=== PATIENT | male | born 1970 | race African-American/Black ===

== ENCOUNTER 2017-10-17 22:59 | Emergency (ER) ==
[2017-10-17 23:11] VITALS: BP 140/93
== END 2017-10-18 01:05 | disposition left against medical advice (07) ==
LOC: ER 22:59
DX: Z53.21 Procedure and treatment not carried out due to patient leaving prior to being seen by health care provider (principal)

== ENCOUNTER 2017-10-21 22:16 | Emergency (ER) | payer MEDICAID ==
[2017-10-22] MEDS ORDERED: KETOROLAC TROMETHAMINE 60 MG/2 ML SDV IM ONE (00:09)
[2017-10-22] MEDS ORDERED: CYCLOBENZAPRINE HCL 10 MG TABLET PO ONE (00:09)
[2017-10-22] MEDS ORDERED: LIDOCAINE 5% (700 MG) TRANSDERMAL ADH..PATCH TP ONE (00:09)
[2017-10-22] MEDS ORDERED: ACETAMINOPHEN 325 MG TABLET PO ONE (00:09)
--- NOTE | 2017-10-22 00:11 | ER Document Report ---
ED General - General Chief Complaint: Fall Stated Complaint: FALL/BACK PAIN Time Seen by Provider: 10/21/17 23:23 Notes: Patient is a 47-year-old male without chronic medical problems who presents with 3 days of low back pain as well as neck pain. Patient states that he was carrying a box down stairs 3 days ago and when he fell. He states that since that time he has had a dull, constant, throbbing, spasming pain to his bilateral low back as well as bilateral neck. He has not tried anything to improve the pain. He denies history of similar injury in the past or chronic back problems. He has not seen his primary doctor regarding today's concerns. He denies any bowel or bladder incontinence retention, weakness, numbness, inability to ambulate, or progressive worsening of the pain. He has not seen his primary doctor regarding today's concerns. Nothing is new or different about her symptoms that prompted her emergency department visit tonight other than that they are failing to improve. TRAVEL OUTSIDE OF THE [place] IN LAST 30 DAYS: No - Related Data Allergies/Adverse Reactions: Penicillins Allergy (Verified 10/22/17 00:43) Past Medical History - General Information source: Patient - Social History Smoking Status: Never Smoker Frequency of alcohol use: None Drug Abuse: None Lives with: Spouse/Significant other Family History: Reviewed & Not Pertinent Patient has suicidal ideation: No Patient has homicidal ideation: No Renal/ Medical History: Denies: Hx Peritoneal Dialysis Review of Systems - Review of Systems Notes: Constitutional: Negative for fever. HENT: Negative for sore throat. Eyes: Negative for visual changes. Cardiovascular: Negative for chest pain. Respiratory: Negative for shortness of breath. Gastrointestinal: Negative for abdominal pain, vomiting or diarrhea. Genitourinary: Negative for dysuria. Musculoskeletal: Positive for low back pain Skin: Negative for rash. Neurological: Negative for headaches, weakness or numbness. 10 point ROS negative except as marked above and in HPI. Physical Exam - Vital signs Vitals: Temp Pulse BP Pulse Ox 98.5 F 87 122/87 H 100 10/21/17 22:38 10/21/17 22:38 10/21/17 22:38 10/21/17 22:38 Interpretation: Normal Notes: PHYSICAL EXAMINATION: GENERAL: Appears uncomfortable but in no acute distress HEAD: Atraumatic, normocephalic. EYES: Pupils equal round and reactive to light, extraocular movements intact, sclera anicteric, conjunctiva are normal. ENT: nares patent, oropharynx clear without exudates. Moist mucous membranes. NECK: Normal range of motion, supple without lymphadenopathy LUNGS: Breath sounds clear to auscultation bilaterally and equal. No wheezes rales or rhonchi. HEART: Regular rate and rhythm without murmurs ABDOMEN: Soft, nontender, normoactive bowel sounds. No guarding, no rebound. No masses appreciated. EXTREMITIES: Normal range of motion, no pitting or edema. No cyanosis. Back: No midline spinal tenderness, step-offs or deformities NEUROLOGICAL: 5 out of 5 strength both distally and proximally bilateral lower extremities. 2+ patellar reflexes bilaterally. No clonus. Sensation grossly intact in the bilateral lower extremities. Patient is able to ambulate without difficulty. PSYCH: Mildly anxious SKIN: Warm, Dry, normal turgor, no rashes or lesions noted. Course - Re-evaluation Re-evalutation: 10/22/17 00:09 Presentation of a well appearing patient complaining of acute back pain after a fall 4 days ago. No rapid progression of symptoms, systemic symptoms including fevers, chills, weight loss, history of recent bacterial infection, bilateral symptoms, numbness, weakness, difficulty walking, urinary retention or bowel incontinence, personal history of cancer, immunosuppression, diabetes, known AAA , or history of IV drug use. Exam is without point tenderness over vertebral bodies, pulsatile abdominal mass, and patient has symmetric and intact lower extremity strength, sensation, and reflexes without clonus. 2+ symmetric medial malleolar and dorsalis pedis pulses Based on history and physical, I have a very low suspicion of a concerning etiology of pain including epidural compression syndrome, spinal infection, transverse myelitis, malignancy, abdominal aortic aneurysm, renal colic, acute lower extremity claudication, neurogenic claudication, ankylosing spondylitis, or other intra-abdominal process. Due to absence of concerning risk factors in history and physical as well as absence of rapidly progressive, severe, or bilateral symptoms, will defer imaging at this point. Plan to manage conservatively with outpatient analgesia, analgesia, and physical therapy. - Acetaminophen 650 q 4 + ibuprofen 600 q 6 - Continue normal daily activities as tolerated by pain - Provide with standard musculoskeletal back pain exercise instructions - Instruct to follow up with primary care provider if symptoms not improving - Provide careful return precautions and concerning symptoms to watch for. 10/22/17 03:14 - Vital Signs Vital signs: Temp Pulse Resp BP Pulse Ox 98.5 F 64 18 122/86 H 100 10/22/17 00:37 10/22/17 00:37 10/22/17 00:37 10/22/17 00:37 10/22/17 00:37 Discharge - Discharge Clinical Impression: Neck pain Low back pain Qualifiers: Chronicity: acute Back pain laterality: bilateral Sciatica presence: without sciatica Qualified Code(s): M54.5 - Low back pain Fall Qualifiers: Encounter type: initial encounter Qualified Code(s): W19.XXXA - Unspecified fall, initial encounter Condition: Good Disposition: HOME, SELF-CARE Additional Instructions: You have been seen in the Emergency Department (ED) today for back pain. Your workup and exam have not shown any acute abnormalities and you are likely suffering from muscle strain or possible problems with your discs, but there is no treatment that will fix your symptoms at this time. Please take the naproxen that has been prescribed as directed. He may additionally take Tylenol 1000 mg every 6 hours as needed for breakthrough pain. You should also purchase a local lidocaine cream such as "aspercreme with lidocaine" and use per bottle instructions to the affected area. Apply heat to the area as often as you are able. Continue to keep active and avoid prolonged periods of bed rest. You have been prescribed Flexeril which you can take at night to help relax your muscles and get some sleep. Please follow up with your doctor as soon as possible regarding today's ED visit and your back pain. Return to the ED for worsening back pain, fever, weakness or numbness of either leg, or if you develop either (1) an inability to urinate or have bowel movements, or (2) loss of your ability to control your bathroom functions (if you start having "accidents"), or if you develop other new symptoms that concern you.concern you. Prescriptions: Cyclobenzaprine HCl [Flexeril 10 mg Tablet] 10 mg PO QHS PRN #15 tablet PRN Reason: Naproxen 500 mg PO BID #60 tablet
[2017-10-22 00:44] VITALS: BP 122/86
== END 2017-10-22 00:44 | disposition home or self-care (01) ==
LOC: ER 22:16
DX: M54.5 Low back pain (principal); M54.2 Cervicalgia; W10.9XXA Fall (on) (from) unspecified stairs and steps, initial encounter; Z88.0 Allergy status to penicillin
CPT/HCPCS: 99283; 96372; J1885

== ENCOUNTER 2018-06-24 14:20 | Emergency (ER) | payer OTHER ==
[2018-06-24] MEDS ORDERED: KETOROLAC TROMETHAMINE 60 MG/2 ML SDV IM ONE (15:29)
[2018-06-24] MEDS ORDERED: METHOCARBAMOL 750 MG TABLET PO ONE (15:29)
--- NOTE | 2018-06-24 15:29 | ER Document Report ---
ED General - General Chief Complaint: Cough Stated Complaint: FALL/BACK PAIN Time Seen by Provider: 06/24/18 15:17 Notes: Patient is a 48-year-old male that presents to the emergency department for chief complaint of back pain after fall. Patient states that he fell from about 4 feet up onto his lower back, around 12:30 PM today, he complains of pain in the middle of his low back, worse with ranges of motion, he gets some radiation down to the buttock on the right side. He denies having any numbness, tingling or weakness, has been able to ambulate without too much difficulty. Denies any saddle anesthesia or paresthesias. Denies any urinary or bowel incontinence or urinary retention. He currently rates his pain as a 6 out of 10, describes as a constant aching sensation worse with movements. Secondarily he also complains of cough that is had for about a week, with some productive sputum. Denies any any fevers, chills, night sweats. Past Medical History: Denies chronic medical conditions Past Surgical History: Exploratory laparotomy Social History: Denies tobacco, alcohol or drug use. Family History: Reviewed and noncontributory for presenting illness Allergies: Reviewed, see documented allergy list. REVIEW OF SYSTEMS: Other than noted above, the 12 point review of systems was reviewed with the patient and were negative, all pertinent findings are included in the HPI. PHYSICAL EXAMINATION: Vital signs reviewed, nursing noted reviewed. GENERAL: Well-appearing, well-nourished and in no acute distress. HEAD: Atraumatic, normocephalic. EYES: Eyes appear normal, extraocular movements intact, sclera anicteric, conjunctiva are normal. ENT: nares patent, oropharynx clear without exudates. Moist mucous membranes. NECK: Normal range of motion, supple without lymphadenopathy LUNGS: Breath sounds clear to auscultation bilaterally and equal. No wheezes rales or rhonchi. HEART: Regular rate and rhythm without murmurs ABDOMEN: Soft, nontender, normoactive bowel sounds. No rebound, guarding, or rigidity. No masses appreciated. Well-healed laparotomy scar present Back: Mild tenderness to palpation to the paraspinal muscles of the lumbar spine bilaterally, no significant midline tenderness in the thoracic or lumbar spine. He has good range of motion with extension, flexion side bending and rotation, but does have discomfort with this. EXTREMITIES: Nontender, good range of motion, no pitting or edema. NEUROLOGICAL: No focal neurological deficits. Moves all extremities spontaneously Motor and sensory grossly intact on exam. PSYCH: Normal mood, normal affect. SKIN: Warm, Dry, normal turgor, no rashes or lesions noted on exposed skin TRAVEL OUTSIDE OF THE [place] IN LAST 30 DAYS: No - Related Data Allergies/Adverse Reactions: Penicillins Allergy (Verified 10/22/17 00:43) Past Medical History - Social History Smoking Status: Current Every Day Smoker Chew tobacco use (# tins/day): No Frequency of alcohol use: None Drug Abuse: Marijuana Family History: Reviewed & Not Pertinent Patient has suicidal ideation: No Patient has homicidal ideation: No Renal/ Medical History: Denies: Hx Peritoneal Dialysis Physical Exam - Vital signs Vitals: Temp Pulse Resp BP Pulse Ox 98.5 F 82 18 140/85 H 98 06/24/18 14:37 06/24/18 14:37 06/24/18 14:37 06/24/18 14:37 06/24/18 14:37 Course - Re-evaluation Re-evalutation: Patient seen and examined vital signs reviewed. Imaging ordered as appropriate for the patient's presenting symptoms and complaint, with consideration of any critical or life threatening conditions that may be associated with their obtained history and exam as noted above. Patient was treated with Robaxin, and IM Toradol Results were reviewed when available and demonstrated negative imaging of the l umbar spine, for acute bony injury The patient was re-evaluated and was stable and improved Evaluation was most consistent with lumbar contusion, low back pain, will discharge patient home with prescription for anti-inflammatory, and muscle relaxer, advised heating pad as well. He is also prescribed Tessalon Perles for his cough/URI symptoms. Results were discussed with the patient at this point, after careful consideration I feel that that patient can be discharged from the emergency department, the patient was educated treatments and reasons to return to the emergency department based on their presumed diagnosis as noted above, they were advised to followup with a primary care physician in 2-3 days. Patient was agreeable to plan of care. *Note is created using voice recognition software and may contain spelling, syntax or grammatical errors. Lumbar Spine X-Ray 06/24/18 15:28 IMPRESSION: No acute osseous finding.L5-S1 level mild-moderate disc space narrowing with osteophytes.Radiodense material in the left T12 paravertebral soft tissues, chronic appearing. - Vital Signs Vital signs: Temp Pulse Resp BP Pulse Ox 98.5 F 82 18 140/85 H 98 06/24/18 14:37 06/24/18 14:37 06/24/18 14:37 06/24/18 14:37 06/24/18 14:37 Discharge - Discharge Clinical Impression: Low back pain Qualifiers: Chronicity: acute Back pain laterality: bilateral Sciatica presence: without sciatica Qualified Code(s): M54.5 - Low back pain URI (upper respiratory infection) Qualifiers: URI type: unspecified URI Qualified Code(s): J06.9 - Acute upper respiratory infection, unspecified Condition: Stable Disposition: HOME, SELF-CARE Instructions: Low Back Pain ([facility]), Upper Respiratory Illness ([facility]) Additional Instructions: Please take the medications as prescribed, if you develop difficulty urinating, or loss of control of your bowels, or have any numbness, tingling or weakness in your legs, do not hesitate to return to the emergency department. Prescriptions: Benzonatate [Tessalon Perle 100 mg Capsule] 100 mg PO Q8HP PRN #30 cap PRN Reason: Cough Methocarbamol [Robaxin 750 mg Tablet] 750 mg PO Q6H PRN #30 tablet PRN Reason: back pain Naproxen [Naprosyn] 500 mg PO BID PRN #30 tablet PRN Reason: back pain Referrals: KIRA ANNE MD [COMMUNITY BASED STAFF] - Follow up in 3-5 days (or your primary care. )
--- NOTE | 2018-06-24 16:44 | RADIOLOGY REPORT (SQ) ---
EXAM DESCRIPTION: L SPINE WHOLE COMPLETED DATE/TIME: 06/24/2018 3:59 pm REASON FOR STUDY: BACK PAIN, INJURY COMPARISON: None. NUMBER OF VIEWS: Five views including obliques. TECHNIQUE: AP, lateral, oblique, and sacral radiographic images acquired of the lumbar spine. LIMITATIONS: None. FINDINGS: MINERALIZATION: Normal. SEGMENTATION: Normal. No transitional anatomy. ALIGNMENT: Normal. VERTEBRAE: Maintained height. No fracture or worrisome bone lesion. DISCS: L5-S1 level mild-moderate disc space narrowing with osteophytes. POSTERIOR ELEMENTS: Pedicles and facets are intact. No pars defect or posterior arch defects. Facet arthropathy is present. HARDWARE: None in the spine. PARASPINAL SOFT TISSUES: Radiodense material in the left T12 paravertebral soft tissues, chronic appe aring. PELVIS: Intact as visualized. No fractures or worrisome bone lesions. SI joints intact. OTHER: No other significant finding. IMPRESSION: No acute osseous finding.L5-S1 level mild-moderate disc space narrowing with osteophytes .Radiodense material in the left T12 paravertebral soft tissues, chronic appearing. TECHNICAL DOCUMENTATION: JOB ID: [id number] [id number] 2010 [employer]- All Rights Reserved Reading location - IP/workstation name: [employer]
[2018-06-24 17:30] VITALS: BP 145/90
== END 2018-06-24 17:28 | disposition home or self-care (01) ==
LOC: ER 14:20
DX: M54.5 Low back pain (principal); W17.89XA Other fall from one level to another, initial encounter; M25.78 Osteophyte, vertebrae; F17.200 Nicotine dependence, unspecified, uncomplicated; F12.10 Cannabis abuse, uncomplicated; Z88.0 Allergy status to penicillin; J06.9 Acute upper respiratory infection, unspecified
CPT/HCPCS: 99283; 96372; 72110; J1885; J3490

== ENCOUNTER 2018-07-03 08:39 | Emergency (ER) | payer BC, OTHER ==
[2018-07-03 08:45] VITALS: BP 143/92
[2018-07-03] MEDS ORDERED: HYDROCODONE/ACETAMINOPHEN 5-325 MG TABLET PO ONE (09:13)
[2018-07-03] MEDS ORDERED: IBUPROFEN 800 MG TABLET PO ONE (09:13)
[2018-07-03] MEDS ORDERED: LIDOCAINE 5% (700 MG) TRANSDERMAL ADH..PATCH TP ONE (09:13)
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
== END 2018-07-03 09:31 | disposition home or self-care (01) ==
LOC: ER 08:39
DX: M70.811 Other soft tissue disorders related to use, overuse and pressure, right shoulder (principal); M54.9 Dorsalgia, unspecified; F17.200 Nicotine dependence, unspecified, uncomplicated
CPT/HCPCS: 99283

== ENCOUNTER 2018-07-21 05:19 | Emergency (ER) | payer OTHER, BC ==
[2018-07-21] MEDS ORDERED: NORMAL SALINE 1000 ML 1,000 ML IV ONE (06:38)
[2018-07-21 07:09] LABS: ABSOLUTE EOSINOPHILS # (AUTO) 0.1 10^3/uL (0.0-0.6); ABSOLUTE LYMPHOCYTES (AUTO) 1.8 10^3/uL (0.5-4.7); ABSOLUTE MONOCYTES (AUTO) 0.5 10^3/uL (0.1-1.4); ABSOLUTE NEUT (AUTO) 2.4 10^3/uL (1.7-8.2); BASOPHILS % (AUTO) 0.6 % (0-2); EOSINOPHILS % (AUTO) 1.3 % (0-6); HEMATOCRIT 45.5 % (37.9-51.0); HEMOGLOBIN 15.5 g/dL (13.5-17.0); LYMPHOCYTES % (AUTO) 38.5 % (13-45); MEAN CORPUSCULAR HGB CONC 34.2 g/dL (32.0-36.0); MEAN CORPUSCULAR VOLUME 91 fl (80-97); MONOCYTES % (AUTO) 9.7 % (3-13); PLATELET COUNT 244 10^3/uL (150-450); RED BLOOD COUNT 5.01 10^6/uL (4.35-5.55); RED CELL DISTRIBUTION WIDTH 12.9 % (11.5-14.0); SEGMENTED NEUTROPHILS % (AUTO) 49.9 % (42-78); TOTAL CELLS COUNTED % (AUTO) 100 %; WHITE BLOOD COUNT 4.8 10^3/uL (4.0-10.5)
[2018-07-21 07:20] LABS: ANION GAP 8 (5-19); BLOOD UREA NITROGEN 10 mg/dL (7-20); CALCIUM 9.4 mg/dL (8.4-10.2); CARBON DIOXIDE 28 mmol/L (22-30); CHLORIDE 105 mmol/L (98-107); GLUCOSE 96 mg/dL (75-110); POTASSIUM 3.9 mmol/L (3.6-5.0); SODIUM 140.6 mmol/L (137-145)
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
[2018-07-21] MEDS ORDERED: KETOROLAC TROMETHAMINE INJ/PF 30 MG/1 ML SDV IV ONE (09:18)
[2018-07-21 10:01] VITALS: BP 150/103
--- NOTE | 2018-07-21 21:20 | EKG REPORT ---
SEVERITY:- OTHERWISE NORMAL ECG - SINUS BRADYCARDIA BORDERLINE LEFT AXIS DEVIATION : Confirmed by: Anuja Peralta MD 21-Jul-2018 21:19:43
== END 2018-07-21 10:01 | disposition home or self-care (01) ==
LOC: ER 05:19
DX: S20.412A Abrasion of left back wall of thorax, initial encounter (principal); M25.50 Pain in unspecified joint; R51 Headache; M54.2 Cervicalgia; R07.9 Chest pain, unspecified; R10.12 Left upper quadrant pain; V43.52XA Car driver injured in collision with other type car in traffic accident, initial encounter; Y93.89 Activity, other specified; N40.0 Benign prostatic hyperplasia without lower urinary tract symptoms; M89.9 Disorder of bone, unspecified
CPT/HCPCS: 93005; 99284; 96361; 96374; 36415; 85025; 80048; 70450; 71260; 72125; 74177; 93010; L0120; J1885; J7030

== ENCOUNTER 2018-08-10 04:05 | Emergency (ER) | payer BC, OTHER ==
[2018-08-10] MEDS ORDERED: LIDOCAINE 5% (700 MG) TRANSDERMAL ADH..PATCH TP ONE (05:03)
[2018-08-10] MEDS ORDERED: KETOROLAC TROMETHAMINE 60 MG/2 ML SDV IM ONE (05:03)
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
--- NOTE | 2018-08-10 05:29 | RADIOLOGY REPORT (SQ) ---
EXAM DESCRIPTION: XR SHOULDER 2 OR MORE VIEWS COMPLETED DATE/TME: 08/10/2018 05:02 CLINICAL HISTORY: 48 years, Male, pain COMPARISON: None. FINDINGS: 3 views of the left shoulder. No acute fracture or dislocation. Normal osseous mineralization. Degenerative change of the acromioclavicular joint. No acute abnormalities of the left hemithorax the IMPRESSION: 1. No acute fracture or dislocation. copyright 2010 [employer]- All Rights Reserved
[2018-08-10 05:56] VITALS: BP 138/90
== END 2018-08-10 05:56 | disposition home or self-care (01) ==
LOC: ER 04:05
DX: M25.512 Pain in left shoulder (principal); R20.0 Anesthesia of skin; X50.3XXA Overexertion from repetitive movements, initial encounter; Y99.0 Civilian activity done for income or pay; I10 Essential (primary) hypertension; F17.200 Nicotine dependence, unspecified, uncomplicated
CPT/HCPCS: 99283; 96372; 73030; J1885

== ENCOUNTER 2018-09-10 00:15 | Emergency (ER) | payer BC ==
[2018-09-10] MEDS ORDERED: KETOROLAC TROMETHAMINE INJ/PF 30 MG/1 ML SDV IM ONE (01:45)
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
[2018-09-10 03:01] VITALS: BP 121/84
--- NOTE | 2018-09-10 03:16 | RADIOLOGY REPORT (SQ) ---
EXAM DESCRIPTION: XR SHOULDER 2 OR MORE VIEWS COMPLETED DATE/TME: 09/10/2018 01:45 CLINICAL HISTORY: 48 years Male, pain COMPARISON:Aug 10 2018 Findings: Mild osteoarthritis of the left acromioclavicular joint. Bones, joints, and soft tissues of the LEFT XR SHOULDER 2 OR MORE VIEWS appear otherwise unremarkable. IMPRESSION: No acute findings.
--- NOTE | 2018-09-10 03:16 | RADIOLOGY REPORT (SQ) ---
Right wrist three view on 09/10/2018 at 2:11 AM CLINICAL INDICATION: Right wrist pain COMPARISON: None FINDINGS: There are no fractures. Visualized joints are well aligned. No bony abnormality is noted. IMPRESSION: No acute bony abnormality.
[2018-09-10] MEDS ORDERED: PREDNISONE 20 MG TABLET PO ONE (03:23)
== END 2018-09-10 03:37 | disposition home or self-care (01) ==
LOC: ER 00:15
DX: M77.9 Enthesopathy, unspecified (principal); M25.512 Pain in left shoulder; G89.29 Other chronic pain; M25.531 Pain in right wrist; X50.3XXA Overexertion from repetitive movements, initial encounter; F17.200 Nicotine dependence, unspecified, uncomplicated
CPT/HCPCS: 99283; 96372; 73030; 73110; L3908; J1885; J7512

== ENCOUNTER 2018-11-25 01:06 | Emergency (ER) | payer BC, OTHER ==
[2018-11-25 01:23] VITALS: BP 125/84
[2018-11-25] MEDS ORDERED: IBUPROFEN 600 MG TABLET PO ONE (01:36)
[2018-11-25] MEDS ORDERED: ACETAMINOPHEN 325 MG TABLET PO ONE (01:36)
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
== END 2018-11-25 03:10 | disposition left against medical advice (07) ==
LOC: ER 01:06
DX: R51 Headache (principal); Z88.0 Allergy status to penicillin
CPT/HCPCS: 99281

== ENCOUNTER 2018-12-13 03:41 | Emergency (ER) | payer SELFPAY ==
[2018-12-13] MEDS ORDERED: METOCLOPRAMIDE HCL INJ/PF 10 MG/2 ML SDV IV ONE (07:22)
[2018-12-13] MEDS ORDERED: NORMAL SALINE 1000 ML 1,000 ML IV ONE (07:22)
[2018-12-13] MEDS ORDERED: DIPHENHYDRAMINE HCL 50 MG/ML VIAL IV ONE (07:22)
[2018-12-13] MEDS ORDERED: DEXAMETHASONE 4 MG TABLET PO ONE (07:22)
[2018-12-13 07:57] LABS: ABSOLUTE BASOPHILS # (AUTO) 0.1 10^3/uL (0.0-0.2); ABSOLUTE EOSINOPHILS # (AUTO) 0.1 10^3/uL (0.0-0.6); ABSOLUTE LYMPHOCYTES (AUTO) 2.3 10^3/uL (0.5-4.7); ABSOLUTE MONOCYTES (AUTO) 0.6 10^3/uL (0.1-1.4); ABSOLUTE NEUT (AUTO) 3.3 10^3/uL (1.7-8.2); BASOPHILS % (AUTO) 0.8 % (0-2); EOSINOPHILS % (AUTO) 2.2 % (0-6); HEMOGLOBIN 15.8 g/dL (13.5-17.0); MEAN CORPUSCULAR HGB CONC 33.7 g/dL (32.0-36.0); MEAN CORPUSCULAR VOLUME 92 fl (80-97); MONOCYTES % (AUTO) 9.9 % (3-13); PLATELET COUNT 297 10^3/uL (150-450); RED BLOOD COUNT 5.11 10^6/uL (4.35-5.55); RED CELL DISTRIBUTION WIDTH 13.8 % (11.5-14.0); SEGMENTED NEUTROPHILS % (AUTO) 51.1 % (42-78); TOTAL CELLS COUNTED % (AUTO) 100 %; WHITE BLOOD COUNT 6.5 10^3/uL (4.0-10.5)
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
[2018-12-13 08:21] LABS: BLOOD UREA NITROGEN 10 mg/dL (7-20); CALCIUM 9.6 mg/dL (8.4-10.2); GLUCOSE 84 mg/dL (75-110); POTASSIUM 4.7 mmol/L (3.6-5.0)
--- NOTE | 2018-12-13 08:25 | RADIOLOGY REPORT (SQ) ---
EXAM DESCRIPTION: CT HEAD WITHOUT COMPLETED DATE/TIME: 12/13/2018 7:37 am REASON FOR STUDY: headache COMPARISON: CT brain 07/21/2018 TECHNIQUE: Axial images acquired through the brain without intravenous contrast. Images reviewed wi th bone, brain and subdural windows. Additional sagittal and coronal reconstructions were generated. Images stored on PACS. All CT scanners at this facility use dose modulation, iterative reconstruction, and/or weight based d osing when appropriate to reduce radiation dose to as low as reasonably achievable (ALARA). [facility]: Dose Right [facility]: CareDose [facility]: Dose Right [facility]: Teradose 4D [facility]: Smart Signicat RADIATION DOSE: CT Rad equipment meets quality standard of care and radiation dose reduction techniq ues were employed. CTDIvol: 53.2 mGy. DLP: 1070 mGy-cm. mGy. LIMITATIONS: None. FINDINGS: VENTRICLES: Normal size and contour. CEREBRUM: No masses. No hemorrhage. No midline shift. No evidence for acute infarction. Normal gra y/white matter differentiation. No areas of low density in the white matter. CEREBELLUM: No masses. No hemorrhage. No alteration of density. No evidence for acute infarction. EXTRAAXIAL SPACES: No fluid collections. No masses. ORBITS AND GLOBE: No intra- or extraconal masses. Normal contour of globe without masses. CALVARIUM: No fracture. PARANASAL SINUSES: No fluid or mucosal thickening. SOFT TISSUES: No mass or hematoma. OTHER: No other significant finding. IMPRESSION: NORMAL BRAIN CT WITHOUT CONTRAST. EVIDENCE OF ACUTE STROKE: NO. COMMENT: Quality ID # [id number]: Final reports with documentation of one or more dose reduction techniques (e.g., Automated exposure control, adjustment of the mA and/or kV according to patient size, use of iterative reconstruction technique) TECHNICAL DOCUMENTATION: JOB ID: [id number] [employer]- All Rights Reserved Reading location - IP/workstation name: [email or web address]
[2018-12-13 08:27] LABS: CARBON DIOXIDE 30 mmol/L (22-30); CHLORIDE 104 mmol/L (98-107); SODIUM 140.1 mmol/L (137-145)
[2018-12-13 08:28] LABS: ANION GAP 6 (5-19)
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
[2018-12-13 09:34] LABS: APPEARANCE,URINE CLEAR; BILIRUBIN,URINE NEGATIVE (NEGATIVE); COLOR,URINE YELLOW; GLUCOSE, URINE NEGATIVE (NEGATIVE); KETONES,URINE NEGATIVE (NEGATIVE); LEUKOCYTE ESTERASE,URINE NEGATIVE (NEGATIVE); NITRITE,URINE NEGATIVE (NEGATIVE); PROTEIN,URINE NEGATIVE (NEGATIVE); URINE SPECIFIC GRAVITY 1.011; UROBILINOGEN,URINE NEGATIVE mg/dL (<2.0)
[2018-12-13 09:53] VITALS: BP 136/95
--- NOTE | 2018-12-13 10:32 | EKG REPORT ---
SEVERITY:- OTHERWISE NORMAL ECG - SINUS RHYTHM LEFT AXIS DEVIATION : Confirmed by: Anuja Peralta MD 13-Dec-2018 10:31:41
== END 2018-12-13 09:54 | disposition home or self-care (01) ==
LOC: ER 03:41
DX: R51 Headache (principal); M54.5 Low back pain; I10 Essential (primary) hypertension; R20.0 Anesthesia of skin; Z91.14 Patient's other noncompliance with medication regimen; Z88.0 Allergy status to penicillin
CPT/HCPCS: 93005; 99284; 96361; 96374; 96375; 36415; 85025; 80048; 81001; 72110; 70450; 93010; J1200; J2765; J7030

== ENCOUNTER 2019-01-31 20:05 | Emergency (ER) | payer SELFPAY ==
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
[2019-01-31 21:06] LABS: ABSOLUTE BASOPHILS # (AUTO) 0.1 10^3/uL (0.0-0.2); ABSOLUTE EOSINOPHILS # (AUTO) 0.1 10^3/uL (0.0-0.6); ABSOLUTE LYMPHOCYTES (AUTO) 2.5 10^3/uL (0.5-4.7); ABSOLUTE MONOCYTES (AUTO) 0.6 10^3/uL (0.1-1.4); ABSOLUTE NEUT (AUTO) 2.6 10^3/uL (1.7-8.2); BASOPHILS % (AUTO) 0.9 % (0-2); EOSINOPHILS % (AUTO) 2.1 % (0-6); HEMATOCRIT 43.2 % (37.9-51.0); HEMOGLOBIN 14.6 g/dL (13.5-17.0); LYMPHOCYTES % (AUTO) 42.6 % (13-45); MEAN CORPUSCULAR HEMOGLOBIN 30.9 pg (27.0-33.4); MEAN CORPUSCULAR HGB CONC 33.8 g/dL (32.0-36.0); MEAN CORPUSCULAR VOLUME 92 fl (80-97); MONOCYTES % (AUTO) 10.2 % (3-13); PLATELET COUNT 242 10^3/uL (150-450); RED BLOOD COUNT 4.72 10^6/uL (4.35-5.55); RED CELL DISTRIBUTION WIDTH 13.2 % (11.5-14.0); SEGMENTED NEUTROPHILS % (AUTO) 44.2 % (42-78); TOTAL CELLS COUNTED % (AUTO) 100 %; WHITE BLOOD COUNT 5.9 10^3/uL (4.0-10.5)
[2019-01-31 21:17] LABS: APPEARANCE,URINE CLEAR; BILIRUBIN,URINE NEGATIVE (NEGATIVE); COLOR,URINE YELLOW; GLUCOSE, URINE NEGATIVE (NEGATIVE); KETONES,URINE NEGATIVE (NEGATIVE); LEUKOCYTE ESTERASE,URINE NEGATIVE (NEGATIVE); NITRITE,URINE NEGATIVE (NEGATIVE); PROTEIN,URINE NEGATIVE (NEGATIVE); URINE SPECIFIC GRAVITY 1.017; UROBILINOGEN,URINE NEGATIVE mg/dL (<2.0)
[2019-01-31 21:27] LABS: ALKALINE PHOSPHATASE 67 U/L (38-126); ANION GAP 6 (5-19); ASPARTATE AMINO TRANSFERASE 23 U/L (17-59); BILIRUBIN,DIRECT 0.2 mg/dL (0.0-0.4); BILIRUBIN,TOTAL 0.6 mg/dL (0.2-1.3); BLOOD UREA NITROGEN 14 mg/dL (7-20); CALCIUM 9.5 mg/dL (8.4-10.2); CARBON DIOXIDE 31 mmol/L (22-30); CHLORIDE 99 mmol/L (98-107); GLUCOSE 98 mg/dL (75-110); POTASSIUM 4.1 mmol/L (3.6-5.0); TOTAL PROTEIN 7.1 g/dL (6.3-8.2)
[2019-01-31 21:32] LABS: URINE AMPHETAMINES SCREEN NEGATIVE; URINE BARBITURATES SCREEN NEGATIVE; URINE BENZODIAZEPINES SCREEN NEGATIVE; URINE COCAINE SCREEN NEGATIVE; URINE MARIJUANA (THC) SCREEN UNCONFIRMED POSITIVE; URINE METHADONE SCREEN NEGATIVE; URINE PHENCYCLIDINE SCREEN NEGATIVE
[2019-01-31] MEDS ORDERED: ONDANSETRON HCL INJ/PF 4 MG/2 ML SDV IV ONE (22:44)
[2019-01-31] MEDS ORDERED: NORMAL SALINE 1000 ML 1,000 ML IV ONE (22:44)
[2019-01-31] MEDS ORDERED: KETOROLAC TROMETHAMINE INJ/PF 30 MG/1 ML SDV IV ONE (22:44)
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
[2019-01-31] MEDS ORDERED: ONDANSETRON ODT 4 MG TAB (6 TAB/ER DISP) PO PRN (22:50)
[2019-02-01 00:16] VITALS: BP 142/74
== END 2019-02-01 00:14 | disposition home or self-care (01) ==
LOC: ER 20:05
DX: R94.4 Abnormal results of kidney function studies (principal); R11.2 Nausea with vomiting, unspecified; R19.7 Diarrhea, unspecified; M54.5 Low back pain; F17.200 Nicotine dependence, unspecified, uncomplicated
CPT/HCPCS: 99284; 96361; 96374; 96375; 36415; 83690; 85025; 80053; 81001; 80307; J1885; J2405; J7030

== ENCOUNTER 2019-02-02 02:59 | Emergency (ER) | payer SELFPAY ==
[2019-02-02 03:05] VITALS: BP 141/95
== END 2019-02-02 03:25 | disposition left against medical advice (07) ==
LOC: ER 02:59
DX: Z53.21 Procedure and treatment not carried out due to patient leaving prior to being seen by health care provider (principal)

== ENCOUNTER 2019-02-05 04:53 | Emergency (ER) | payer SELFPAY ==
[2019-02-05 05:02] VITALS: BP 149/110
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
== END 2019-02-05 06:09 | disposition home or self-care (01) ==
LOC: ER 04:53
DX: I10 Essential (primary) hypertension (principal); H53.8 Other visual disturbances; R51 Headache; R42 Dizziness and giddiness; F17.200 Nicotine dependence, unspecified, uncomplicated
CPT/HCPCS: 99283

== ENCOUNTER 2019-02-12 03:22 | Emergency (ER) | payer SELFPAY ==
[2019-02-12 03:31] VITALS: BP 172/104
== END 2019-02-12 05:00 | disposition left against medical advice (07) ==
LOC: ER 03:22
DX: Z53.21 Procedure and treatment not carried out due to patient leaving prior to being seen by health care provider (principal)